=== PATIENT | male | born 1940 | race Caucasian/White ===

== ENCOUNTER 2021-01-30 18:45 | Emergency (ER) | payer BC, MEDICARE, SELFPAY ==
[~2021-01-30] VITALS: Ht 165.1 cm; Wt 73.5 kg
[2021-01-30 18:45] VITALS: BP 159/72
== END 2021-01-30 18:54 | disposition left against medical advice (07) ==
LOC: M ED 18:45
DX: Z53.21 Procedure and treatment not carried out due to patient leaving prior to being seen by health care provider (principal)